=== PATIENT | female | born 1990 | race Caucasian/White ===

== ENCOUNTER 2016-10-17 12:53 | Inpatient (IN) | payer OTHER, BC ==
[2016-10-17] VITALS (7 sets, daily range): BP systolic 100–115; BP diastolic 64–78; PULSE 94–99; TEMP 36.3–36.7; O2SAT 99–100; BMI 15.6
[~2016-10-17] VITALS: Ht 177.8 cm; Wt 47.6 kg
[2016-10-17] MEDS ORDERED: SODIUM CHLORIDE 0.9% 1000ML 1,000 ML IV STA ×3 (14:42→15:51)
[2016-10-17] MEDS ORDERED: ONDANSETRON INJ 2 MG/ML 2 ML VIAL IV STA (14:42)
--- NOTE | 2016-10-17 15:03 | EMERGENCY ROOM VISIT NOTE ---
History Report prepared by Eligio: Anai Garza Under the Supervision of: Dr. Nithya Lea M.D. First contact with patient: 14:18 Chief Complaint: REFERRED BY DOCTOR Stated Complaint: NAUSEA,VOMITING,FLU LIKE SX History of Present Illness The patient is a 26 year old female who presents to the Emergency Room with complaints of persistent flu-like symptoms starting 2 days ago. She complains of subjective fevers, chills, headache, rhinorrhea, shortness of breath, nausea , vomiting, and body aches. Her boyfriend recently had similar symptoms. The patient has a history of type I diabetes and her blood sugar level is normally around 300-400. She does not check her blood sugar level at home. She was evaluated at an urgent care and she was referred to the Emergency Room for concerns about DKA. Her blood sugar level at the urgent care was 250. She last used her insulin this morning. She denies any cough, chest pain, abdominal pain , blood in urine/stool, or any other complaints. Source of History: patient Onset: 2 days ago Position: other (global) Quality: other (flu-like symptoms) Timing: other (persistent) Associated Symptoms: + SOB, + chills, + fevers, + headache, + nausea, + vomiting, No abdominal pain, No chest pain, No cough Review of Systems See HPI for pertinent positives & negatives. A total of 10 systems reviewed and were otherwise negative. Past Medical & Surgical Medical Problems: (1) Diabetes Family History Diabetes mellitus Social History Smoking Status: Never Smoker Alcohol Use: none Drug Use: none Marital Status: in relationship Occupation Status: student Current/Historical Medications Scheduled Insulin Human Regular (Novolin R), 5-10 UNITS SC TID [Norplant], 1 DOSE INTRAD DIRECTED Allergies Coded Allergies: No Known Allergies (Unverified , 10/17/16) Physical Exam Vital Signs Date Time Temp Pulse Resp B/P Pulse Ox O2 Delivery O2 Flow Rate FiO2 10/17/16 16:55 107 16 113/82 100 Room Air 10/17/16 16:03 125 10/17/16 14:47 108 20 120/85 100 Room Air 10/17/16 13:06 36.3 123 18 120/76 98 Room Air Physical Exam Vital signs reviewed. General: Extremely thin and cachectic, acute on chronically ill, smell of ketones on breath. HEENT: No scleral icterus, PERRLA, neck supple. Mucous membranes are dry. Atraumatic. Cardiovascular: Tachycardic rate and regular rhythm, no extra sounds. Pulmonary: Clear to auscultation bilaterally, increased work of breathing. Abdomen: Soft, nontender, nondistended, positive bowel sounds. Musculoskeletal: Atraumatic, no peripheral edema. Neurologic: Patient awake alert and oriented x 3, full strength in all 4 extremities. Cranial nerves 2 through 12 grossly intact. Skin: Warm, dry, no rash Medical Decision & Procedures Laboratory Results 10/17/16 15:00 Red Blood Count 4.93, Mean Corpuscular Volume 95.9, Mean Corpuscular Hemoglobin 32.7, Mean Corpuscular Hemoglobin Concent 34.0, Mean Platelet Volume 9.3, Neutrophils (%) (Auto) 73.9, Lymphocytes (%) (Auto) 13.0, Monocytes (%) (Auto) 12.6, Eosinophils (%) (Auto) 0.0, Basophils (%) (Auto) 0.1, Neutrophils # (Auto ) 10.62, Lymphocytes # (Auto) 1.87, Monocytes # (Auto) 1.82, Eosinophils # (Auto ) 0.00, Basophils # (Auto) 0.02 Test 10/17/16 15:00 10/17/16 16:14 10/17/16 16:55 White Blood Count 14.39 K/uL (4.8-10.8) Red Blood Count 4.93 M/uL (4.2-5.4) Hemoglobin 16.1 g/dL (12.0-16.0) Hematocrit 47.3 % (37-47) Mean Corpuscular Volume 95.9 fL (80-100) Mean Corpuscular Hemoglobin 32.7 pg (25-34) Mean Corpuscular Hemoglobin Concent 34.0 g/dl (32-36) Platelet Count 317 K/uL (130-400) Mean Platelet Volume 9.3 fL (7.4-10.4) Neutrophils (%) (Auto) 73.9 % Lymphocytes (%) (Auto) 13.0 % Monocytes (%) (Auto) 12.6 % Eosinophils (%) (Auto) 0.0 % Basophils (%) (Auto) 0.1 % Neutrophils # (Auto) 10.62 K/uL (1.4-6.5) Lymphocytes # (Auto) 1.87 K/uL (1.2-3.4) Monocytes # (Auto) 1.82 K/uL (0.11-0.59) Eosinophils # (Auto) 0.00 K/uL (0-0.5) Basophils # (Auto) 0.02 K/uL (0-0.2) RDW Standard Deviation 43.2 fL (36.4-46.3) RDW Coefficient of Variation 12.3 % (11.5-14.5) Immature Granulocyte % (Auto) 0.4 % Immature Granulocyte # (Auto) 0.06 K/uL (0.00-0.02) Prothrombin Time 9.3 SECONDS (9.0-12.0) Prothromb Time International Ratio 0.9 (0.9-1.1) Estimated Average Glucose 335 mg/dl Hemoglobin A1c 13.3 % (4.5-5.6) Total Bilirubin 0.6 mg/dl (0.2-1) Direct Bilirubin 0.1 mg/dl (0-0.2) Aspartate Amino Transf (AST/SGOT) 28 U/L (15-37) Alanine Aminotransferase (ALT/SGPT) 38 U/L (12-78) Alkaline Phosphatase 155 U/L (45-117) Total Protein 9.8 gm/dl (6.4-8.2) Albumin 5.3 gm/dl (3.4-5.0) Thyroid Stimulating Hormone (TSH) 0.370 uIu/ml (0.300-4.500) Influenza Type A Antigen Neg for Influ A (NEG) Influenza Type B Antigen Neg for Influ B (NEG) Arterial Blood pH 7.18 (7.35-7.45) Arterial Blood Partial Pressure CO2 20 mmHg (35-46) Arterial Blood Partial Pressure O2 113 mm/Hg (80-95) Arterial Blood HCO3 7 mmol/L (19-24) Arterial Blood Oxygen Saturation 97.8 % (90-95) Arterial Blood Base Excess -19.1 mEq/L (-9-1.8) Arterial Blood Gas Delivery ROOM AIR Nelson Test POS (POS) Urine Color YELLOW Urine Appearance CLEAR (CLEAR) Urine pH 5.0 (4.5-7.5) Urine Specific Berkley 1.025 (1.000-1.030) Urine Protein 2+ (NEG) Urine Glucose (UA) 3+ (NEG) Urine Ketones 4+ (NEG) Urine Occult Blood TRACE (NEG) Urine Nitrite NEG (NEG) Urine Bilirubin NEG (NEG) Urine Urobilinogen NEG (NEG) Urine Leukocyte Esterase NEG (NEG) Urine WBC (Auto) 5-10 /hpf (0-5) Urine RBC (Auto) 0-4 /hpf (0-4) Urine Hyaline Casts (Auto) 1-5 /lpf (0-5) Urine Epithelial Cells (Auto) >30 /lpf (0-5) Urine Bacteria (Auto) 1+ (NEG) Urine Test NEG (NEG) Date/Time Source Procedure Growth Status 10/17/16 00:00 Nasal MRSA DNA Surveillance Screen - Final Specimen Negative for MRSA by DNA Probe Complete Laboratory results per my review. Medications Administered Medications (Trade) Dose Ordered Sig/Fam Route Start Time Stop Time Status Last Admin Dose Admin Sodium Chloride (Nss 1000ml) 1,000 ml @ 999 mls/hr Q1H1M STAT IV 10/17/16 14:42 10/17/16 15:42 DC 10/17/16 14:58 999 MLS/HR Ondansetron HCl 4 mg 4 mg NOW STAT IV 10/17/16 14:42 10/17/16 14:46 DC 10/17/16 14:59 4 MG Sodium Chloride 1,000 ml @ 999 mls/hr Q1H1M STAT IV 10/17/16 15:51 10/17/16 16:51 DC 10/17/16 16:54 999 MLS/HR Insulin Human Regular 1 unit/ Syringe 1 ml @ 1 mls/min TODAY@1645 ONCE IV 10/17/16 16:45 10/17/16 16:46 DC 10/17/16 17:23 1 MLS/MIN Insulin Human Regular/Sodium Chloride (novoLIN-R/Nss 250ml) 252.5 ml @ 0 mls/hr DAILY@1130 IV 10/17/16 16:45 10/18/16 18:00 DC 10/18/16 11:30 1.6 MLS/HR ED Course 1418: Past medical records reviewed. The patient was evaluated in room C01B. A complete history and physical examination was performed. 1442: Zofran Inj 4 mg IV, Sodium Chloride 1000 ml @ 999 mls/hr IV, Sodium Chloride 1000 ml @ 200 mls/hr IV. The patient is refusing a chest-xray. 1551: Sodium Chloride 1000 ml @ 999 mls/hr IV 1553: I reevaluated the patient. She is agreeable to the treatment plan. 1625: Upon reevaluation, the patient is resting comfortably. I discussed laboratory and radiographic results with her. She verbalized agreement of the treatment plan. I spoke with Dr. Hagen of the [facility] Service. The patient will be evaluated for further management and care. 1645: Glucagon 1 mg SQ, Dextrose 50 ml IV, Glucose 1 tabs PO, Insulin Human Regular 250 units/Sodium Chloride 252.5 ml @ 0 mls/hr IV, Insulin Human Regular 1 unit/Syringe 1 ml @ 1 mls/min IV 1900: Insulin Aspart Sliding Scale SC Medical Decision Differential diagnosis includes but is not limited to DKA, influenza, metabolic abnormalities, pneumonia, UTI, , renal failure. This patient was evaluated and appeared to be in no distress, but ill. IV access was obtained and laboratory work was drawn. Patient was placed on the cardiac technician. She was hydrated with normal saline solution and given IV Zofran. Laboratory work reveals a leukocytosis, elevated glucose, CO2 of 8 and an anion gap of 24. The patient's pH on ABG is 7.18. After further discussion with the patient, she does not have a realistic understanding of her illness. 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 She does not have a primary care physician. The patient has been using [id number] insulin and not checking her glucose levels. The patient expressed understanding of the gravity of the situation and has agreed to hospitalization for further management. The hospitalist was consulted and has agreed to evaluate the patient for further management. Consults Time Called: 1620 Consulting Physician: Dr. Hagen of the [facility] Hospitalist Service Returned Call: [address] Hagen of the [facility] Service. Impression Primary Impression: DKA (diabetic ketoacidoses) Critical Care I have personally spent greater than 60 minutes of critical care time in the direct management of this patient. This includes bedside care, interpretation of diagnostic studies, and testing, discussion with consultants, patient, and family members, and other required patient management activities. This 60 minutes is in excess of all separately billable procedures. Scribe Attestation The scribe's documentation has been prepared under my direction and personally reviewed by me in its entirety. I confirm that the note above accurately reflects all work, treatment, procedures, and medical decision making performed by me. Departure Information Dispostion Being Evaluated By Hospitalist Referrals No Doctor, Assigned (PCP) Patient Instructions [facility] Problem Qualifiers Primary Impression: DKA (diabetic ketoacidoses) Diabetes mellitus type: type 1 Diabetes mellitus complication detail: without coma Qualified Codes: E10.10 - Type 1 diabetes mellitus with ketoacidosis without coma
[2016-10-17 15:11] LABS: HEMATOCRIT 47.3 % (37-47); MEAN CELL VOLUME 95.9 fL (80-100); MEAN CORPUSCULAR HEMOGLOBIN 32.7 pg (25-34); MEAN PLATELET VOLUME 9.3 fL (7.4-10.4); PLATELET COUNT 317 K/uL (130-400); RED BLOOD COUNT 4.93 M/uL (4.2-5.4); WHITE BLOOD COUNT 14.39 K/uL (4.8-10.8)
[2016-10-17] MEDS ORDERED: NVLRPUC SC (15:31)
[2016-10-17] MEDS ORDERED: NORPLANT INTRAD (15:31)
[2016-10-17 15:38] LABS: BUN/CREATININE RATIO 14.2 (10-20); CALCIUM 9.1 mg/dl (8.5-10.1); CREATININE 1.1 mg/dl (0.60-1.20); MAGNESIUM 2.1 mg/dl (1.8-2.4); POTASSIUM 4.4 mmol/L (3.5-5.1)
[2016-10-17] MEDS ORDERED: INSULIN IV INFUSION PROTOCOL STA ×2 (16:07→17:16)
[2016-10-17 16:11] LABS: BETA-HYDROXYBUTYRATE 88.2 mg/dL (0.2-2.81)
[2016-10-17] MEDS ORDERED: DKA GOAL RANGE 150-250 mg/dl 1 EA ONE ×2 (16:15→17:30)
[2016-10-17] MEDS ORDERED: MODERATE STRESS LEVEL ONE ×2 (16:15→17:30)
[2016-10-17 16:28] LABS: ALLEN TEST POS (POS); ARTERIAL BLD GAS O2 SATURATION 97.8 % (90-95); ARTERIAL BLOOD GAS BASE EXCESS -19.1 mEq/L (-9-1.8); ARTERIAL BLOOD GAS HCO3 7 mmol/L (19-24); ARTERIAL BLOOD GAS PO2 113 mm/Hg (80-95); O2 ADMINISTRATION ROOM AIR
[2016-10-17 16:30] LABS: ARTERIAL BLOOD GAS pH 7.18 (7.35-7.45)
[2016-10-17] MEDS ORDERED: GLUCOSE 40% GEL 15 GM TUBE PO PRN (16:45)
[2016-10-17] MEDS ORDERED: GLUCAGON FOR INJ 1 MG VIAL SQ PRN (16:45)
[2016-10-17] MEDS ORDERED: DEXTROSE 50% 50 ML SYR IV PRN (16:45)
[2016-10-17] MEDS ORDERED: GLUCOSE 10 TABS/TUBE PO PRN (16:45)
[2016-10-17] MEDS ORDERED: INSULIN HUMAN REGULAR IV BOLUS 1 UNIT in SYRINGE 0 ML IV ONE (16:45)
[2016-10-17 17:04] LABS: BASO % 0.1 %; BASO ABS # 0.02 K/uL (0-0.2); COMPLETE YES; IG% 0.4 %; LYMPH ABS # 1.87 K/uL (1.2-3.4); MONO % 12.6 %; NEUT % 73.9 %
[2016-10-17] MEDS ORDERED: SODIUM CHLORIDE 0.9% 1000ML 1,000 ML IV ONE (17:16)
[2016-10-17] MEDS ORDERED: SODIUM CHLORIDE 0.9% 1000ML 1,000 ML IV SCH (17:16)
[2016-10-17 17:18] LABS: URINE APPEARANCE CLEAR (CLEAR); URINE BILIRUBIN NEG (NEG); URINE COLOR YELLOW; URINE EPITHELIAL CELL AUTO >30 /lpf (0-5); URINE NITRITE NEG (NEG); URINE SPECIFIC GRAVITY 1.025 (1.000-1.030); UROBILINOGEN NEG (NEG); ZZUR CULT IF INDIC CLEAN CATCH YES
[2016-10-17 17:19] LABS: MANUAL MICROSCOPIC REQUIRED? NO; REVIEW REQ? NO
[2016-10-17] MEDS: INSULIN REGULAR 250 UNITS in SODIUM CHLORIDE 0.9% 250ML 250 ML IV SCH (17:25)
[2016-10-17] MEDS ORDERED: MoRPHine SULFATE 2 MG/ML CARP IV PRN (17:30)
[2016-10-17] MEDS ORDERED: LORAZEPAM 0.5 MG TAB PO PRN (17:30)
[2016-10-17] MEDS ORDERED: KCL IVF SCH (17:30)
[2016-10-17] MEDS ORDERED: PENDING D5NS+40mEq KCL IVF SCH (17:30)
[2016-10-17] MEDS ORDERED: PHARMACY GLYCEMIC MGMT CONSULT PRN (17:30)
[2016-10-17] MEDS ORDERED: [UNRECOGNIZED DRUG - OTHER] SCH (17:30)
[2016-10-17 17:51] LABS: INR 0.9 (0.9-1.1); PROTHROMBIN TIME (PATIENT) 9.3 SECONDS (9.0-12.0)
--- NOTE | 2016-10-17 18:00 | HISTORY & PHYSICAL EXAMINATION ---
DATE OF ADMISSION: 10/17/2016 CHIEF COMPLAINT: Abdominal pain and vomiting. ADMITTING DIAGNOSIS: Diabetic ketoacidosis. 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 Reportedly, the patient had a falling out with her angular developer at home in [place], I think, and she decided to self-manage her diabetes. The patient reportedly gets her insulin over the counter, takes roughly around 10 units with 3 meals a day, does not take any at bedtime insulin because of concern for hypoglycemia in the evening. She does not check her blood sugars unless she feels poorly. She states that her blood sugars typically run in the 300-400 range and she usually feels shaky, when it is below 200. The patient says she just does not have time to take care of her diabetes at this point in time but when she finishes her education she may have time. The patient initially presented because of feeling flu-like for the last 4 days having vomiting for the last 2 days and decreased oral intake. In the Emergency Department, she was found to have a pH of 7.18 and she was found to have a serum bicarbonate of 8 and anion gap of 24 with a glucose of 300 and a beta hydroxybutyric acid of 88. She is agreeable to admission. PAST MEDICAL HISTORY: Other than her insulin requiring diabetes is only for migraines. MEDICATIONS: Really her insulin as mentioned and she has got a control implant in her arm. SOCIAL HISTORY: She does not smoke or drink. She is art history major. FAMILY HISTORY: Her father is an insulin-requiring diabetic. REVIEW OF SYSTEMS: Only for increasing anxiety of late, decreased energy, increased urination, increased thirst, dry mouth, increased hunger, the nausea and vomiting as mentioned, she says she has stool every day and it is normal size and shape in caliber. She says her urination does not burn or no hematuria. Otherwise, 10 systems were reviewed and are negative. PHYSICAL EXAMINATION: GENERAL: The patient is markedly thin with a BMI of 15. VITAL SIGNS: Her temperature is 36.3, pulse is 120, respirations 20, BP 120/85, O2 sat 100%. HEENT: PERRL, EOMI. Oropharynx is markedly dry. Her lips are cracked. NECK: Without lymphadenopathy, JVD, thyromegaly. HEART: Tachycardic without murmurs. LUNGS: Clear without wheezes or crackles. SPINE: Nontender. ABDOMEN: Normoactive bowel sounds, soft. There is no organomegaly. EXTREMITIES: Without cyanosis, clubbing or edema. She has no neuropathy at this present time. NEUROLOGICALLY: She is awake, alert and appropriate. Cranial nerves II-XII are intact. LABORATORY DATA: Otherwise shows a BUN and creatinine of 24 and 1.6, potassium 4.4. White count of 14, H\T\H of 16 and 47, platelet count is 317. ASSESSMENT: Diabetic ketoacidosis in a 26-year-old insulin-requiring female. PLAN: The patient may admit to ICU, she will be put on DKA protocol with intravenous fluids and even dextrose-containing fluids until anion gap closes. Will have a pharmacy management for this DKA. Supplement her potassium as is her acidosis changes is expected to reverse and teaching will be undertaken. Enoxaparin will be employed for DVT prevention and lorazepam will be used for anxiety. Urine thus is also ordered as well as a TSH and hemoglobin A1c; this would be performed after the patient is admitted. JUSTIND
[2016-10-17] MEDS ORDERED: INSULIN ASPART 100 UNITS/ML 3 ML PEN SC SCH (18:03)
--- NOTE | 2016-10-17 18:25 | Pharmacy Progress Note ---
Glycemic Control Intl Consult Date of Service Oct 17, 2016. Scope Glycemic Pharmacist consulted for glycemic control and to write orders per [facility] inpatient glycemic control protocol Objective Weight (Kilograms): 47.400 Accuchecks BSG (last 24hrs): Test 10/17/16 14:57 10/17/16 15:00 Bedside Glucose 364 mg/dl (70-90) Random Glucose 368 mg/dl (70-99) Laboratory Data (last 24hrs) Test 10/17/16 15:00 Anion Gap 24.0 mmol/L BUN/Creatinine Ratio 14.2 Blood Urea Nitrogen 16 mg/dl Creatinine 1.10 mg/dl Potassium Level 4.4 mmol/L Sodium Level 134 mmol/L White Blood Count 14.39 K/uL Red Blood Count 4.93 M/uL Hemoglobin 16.1 g/dL Hematocrit 47.3 % Mean Corpuscular Volume 95.9 fL Mean Corpuscular Hemoglobin 32.7 pg Mean Corpuscular Hemoglobin Concent 34.0 g/dl Platelet Count 317 K/uL Mean Platelet Volume 9.3 fL Neutrophils (%) (Auto) 73.9 % Lymphocytes (%) (Auto) 13.0 % Monocytes (%) (Auto) 12.6 % Eosinophils (%) (Auto) 0.0 % Basophils (%) (Auto) 0.1 % Neutrophils # (Auto) 10.62 K/uL Lymphocytes # (Auto) 1.87 K/uL Monocytes # (Auto) 1.82 K/uL Eosinophils # (Auto) 0.00 K/uL Basophils # (Auto) 0.02 K/uL HbA1c Test 10/17/16 15:00 Recent Pertinent Medications Outpatient Anti-diabetic Regimen: * Regular insulin 5-10 units SC TID * No basal insulin * A1c pending Risk Factors for Insulin Resistance: * Infection: Flu-like symptoms * Diet: T1DM Assessment & Plan ASSESSMENT: * ADA & AACE recommend a goal blood sugar range 140-180 mg/dl for the majority of critically ill & non-critically ill patients. However, more stringent targets may be selected in individual cases. * 26 yo F with history of Type 1 diabetes * Patient obtains regular insulin over the counter. She does not use basal insulin at home * Patient does not regularly check BSG's at home. BSG's typically 300-400 mg/ dL. Patient noted she doesn't feel well if BSG's below ~200 mg/dL * Father has diabetes * Patient referred to ED, found to have severe DKA with significant acidosis and elevated anion gap. Started on insulin gtt, plan to transfer to ICU * Patient's BSG's close to goal range already, prior to starting insulin gtt. However, DKA requires insulin to correct acidosis. BSG's within range after 1 hr on insulin gtt. Will add dextrose to IVF * Anticipate insulin gtt will be required for a minimum of 6-12 hours. Continue serial lab testing q4h. * Will transition to SQ basal/bolus when following criteria are met and provider OK's transition: * Glucose < 200 mg/dL PLUS 2 of the following 3 listed criteria * Anion gap 12 mEq/L or below * CO2 15 mEq/L or above * pH greater than 7.3 PLAN FOR INPATIENT GLYCEMIC CONTROL: * Continue IV insulin infusion (moderate stress, goal 150-250 mg/dL) * Add dextrose and K to IVF now, as ordered * Continue serial lab testing q4h [email or web address], as recommended by insulin infusion protocol * Patient will require diabetes education and significant modification of outpatient regimen, most notably the addition of basal insulin, possible transition to rapid-acting insulin (in-lieu of regular insulin) and frequent monitoring of BSG's. * Please note that the plan above was derived based on current level of insulin resistance and hospital stress. These recommendations are appropriate for inpatient admission only. Plan of care upon discharge will need to be reassessed to avoid potential outpatient hypo/hyperglycemia. Thank you.
[2016-10-17] MEDS: POTASSIUM CHLORIDE INJ 40 MEQ in D5W AND NSS 1,000 ML IV SCH (19:13)
[2016-10-17] MEDS: INSULIN ASPART 100 UNITS/ML 3 ML PEN SC SCH ×2 (19:13→21:00)
[2016-10-17] MEDS: ENOXAPARIN 40 MG/0.4 ML SYR SQ SCH (19:14)
[2016-10-17] MEDS: ACETAMINOPHEN 325 MG TAB PO PRN (19:15)
[2016-10-17 20:31] LABS: BUN/CREATININE RATIO 10.7 (10-20); CALCIUM 7.8 mg/dl (8.5-10.1); CREATININE 0.98 mg/dl (0.60-1.20); MAGNESIUM 1.6 mg/dl (1.8-2.4)
[2016-10-17 20:46] LABS: PHOSPHORUS 1.1 mg/dl (2.5-4.9)
[2016-10-17] MEDS ORDERED: NURSING VERBAL MED ORDER STA (20:58)
[2016-10-17] MEDS ORDERED: SODIUM CHLORIDE 0.9% IV ONE (21:30)
[2016-10-17] MEDS ORDERED: POTASSIUM PHOSPHATE INJ 21 MMOL in SODIUM CHLORIDE 0.9% 500ML 500 ML IV ONE (21:30)
[2016-10-17] MEDS ORDERED: POTASSIUM PHOSPHATE IV ONE (21:30)
[2016-10-17] MEDS: MAGNESIUM SULFATE 1GM / D5W 1 GM in PREMIXED IN D5W 100 ML IV SCH ×2 (21:55→23:02)
[2016-10-17 23:59] LABS: BUN/CREATININE RATIO 11.5 (10-20); CALCIUM 7.4 mg/dl (8.5-10.1); CREATININE 0.9 mg/dl (0.60-1.20); MAGNESIUM 2.3 mg/dl (1.8-2.4); PHOSPHORUS 1.6 mg/dl (2.5-4.9); POTASSIUM 4.1 mmol/L (3.5-5.1)
[2016-10-18] VITALS (17 sets, daily range): BP systolic 94–125; BP diastolic 57–89; PULSE 68–98; TEMP 36.5–37; O2SAT 98–100; Ht 177.8 cm; Wt 47.6 kg
[2016-10-18] MEDS: ACETAMINOPHEN 325 MG TAB PO PRN ×2 (00:04→14:55)
[2016-10-18 00:09] LABS: BETA-HYDROXYBUTYRATE 34.21 mg/dL (0.2-2.81)
[2016-10-18] MEDS: POTASSIUM CHLORIDE INJ 40 MEQ in D5W AND NSS 1,000 ML IV SCH ×3 (01:27→14:53)
[2016-10-18 05:15] LABS: BUN/CREATININE RATIO 12.1 (10-20); CALCIUM 7.6 mg/dl (8.5-10.1); CREATININE 0.72 mg/dl (0.60-1.20); MAGNESIUM 2.2 mg/dl (1.8-2.4); POTASSIUM 3.6 mmol/L (3.5-5.1)
[2016-10-18 05:28] LABS: PHOSPHORUS 1.3 mg/dl (2.5-4.9)
[2016-10-18] MEDS ORDERED: NURSING VERBAL MED ORDER STA (05:32)
[2016-10-18] MEDS ORDERED: POTASSIUM PHOSPHATE INJ 15 MMOL in SODIUM CHLORIDE 0.9% 250ML 250 ML IV SCH (05:45)
[2016-10-18 06:02] LABS: ESTIMATED AVERAGE GLUCOSE 335 mg/dl; HA1C FLAG Normal (Normal)
[2016-10-18] MEDS: INSULIN ASPART 100 UNITS/ML 3 ML PEN SC SCH ×4 (08:00→20:50)
[2016-10-18 09:08] LABS: BUN/CREATININE RATIO 12.5 (10-20); CALCIUM 7.5 mg/dl (8.5-10.1); CREATININE 0.6 mg/dl (0.60-1.20); MAGNESIUM 1.8 mg/dl (1.8-2.4); POTASSIUM 3.6 mmol/L (3.5-5.1)
[2016-10-18] MEDS: INSULIN REGULAR 250 UNITS in SODIUM CHLORIDE 0.9% 250ML 250 ML IV SCH (11:30)
--- NOTE | 2016-10-18 12:00 | Critical Care Consultation ---
Critical Care Consultation Date of Consultation: Oct 18, 2016. Attending Physician: Rabia Hughes M.D. Reason for Consultation: DKA History of Present Illness 26-year-old female with past medical history of type 1 diabetes presented to the ER with complaints of flulike symptoms which started about 4 days prior to arrival. She had also experienced nausea and vomiting with decreased by mouth intake for about 2 days. In the ER , she was found to have a blood glucose of 300, with a pH of 7.18, bicarbonate of 8 and anion gap of 24. The urine was positive for 4+ ketones and serum beta hydroxybutyric acid was 88. She has a history of type 1 diabetes diagnosed about 2 years ago . 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 She states that she doesn't like to check her blood sugars while at school for privacy issues and that she is very busy with school work. Her blood sugars usually run in the 300s. She was admitted to the ICU to manage her DKA. Today she complains of feeling tired but denies any new episodes of vomiting though she feels nauseous. Past Medical/Surgical History Type 1 diabetes Family History Diabetes mellitus Social History Smoking Status: Never Smoker Drug Use: none Allergies Coded Allergies: No Known Allergies (Unverified , 10/17/16) Home Medications Scheduled Insulin Human Regular (Novolin R), 5-10 UNITS SC TID [Norplant], 1 DOSE INTRAD DIRECTED Current Inpatient Medications Current Inpatient Medications Medications (Trade) Dose Ordered Sig/Fam Route Start Time Stop Time Status Last Admin Dose Admin Insulin Aspart SLIDING SCALE PCHS SC 10/17/16 18:03 11/16/16 18:59 Insulin Human Regular/Sodium Chloride (novoLIN-R/Nss 250ml) 252.5 ml @ 0 mls/hr DAILY@1130 IV 10/17/16 16:45 10/31/16 16:44 10/17/16 17:25 1.2 MLS/HR Glucose (Glucose 40% Gel) UD PRN PO 10/17/16 16:45 11/16/16 16:44 Glucose (Glucose Chew Tab) 1 tabs UD PRN PO 10/17/16 16:45 11/16/16 16:44 Dextrose (Dextrose 50% 50ML Syringe) 50 ml UD PRN IV 10/17/16 16:45 11/16/16 16:44 Glucagon (Glucagon Inj) 1 mg UD PRN SQ 10/17/16 16:45 11/16/16 16:44 Enoxaparin Sodium (Lovenox Inj) 40 mg Q24H SQ 10/17/16 20:00 11/16/16 19:59 10/17/16 19:14 40 MG Acetaminophen (Tylenol Tab) 650 mg Q4H PRN PO 10/17/16 17:30 11/16/16 17:29 10/18/16 00:04 650 MG Lorazepam (Ativan Tab) 0.5 mg Q4H PRN PO 10/17/16 17:30 11/16/16 17:29 Morphine Sulfate (MoRPHine SULFATE INJ) 2 mg Q2H PRN IV 10/17/16 17:30 10/31/16 17:29 Miscellaneous Information 1 ea 1 ea UD PRN N/A 10/17/16 17:30 11/16/16 17:29 Potassium Chloride/Dextrose/ Sodium Chloride (KCl Inj/D5W And Nss) 1,020 ml @ 150 mls/hr Q6H48M IV 10/17/16 18:45 11/16/16 18:44 10/18/16 08:21 150 MLS/HR Review of Systems Constitutional: No chills, No fever Eyes: No worsening of vision ENT: No hearing loss Respiratory: No cough, No sputum Cardiovascular: No chest pain Abdomen: + nausea, No pain, No vomiting Musculoskeletal: No joint pain Genitourinary - Female: No dysuria, No urinary frequency Neurologic: No memory loss, No paralysis Physical Exam Date Time Temp Pulse Resp B/P Pulse Ox O2 Delivery O2 Flow Rate FiO2 10/18/16 10:00 91 20 115/75 99 Room Air 10/18/16 08:00 37.0 98 24 104/68 100 Room Air 10/18/16 08:00 99 Room Air 10/18/16 06:00 81 18 98/72 99 10/18/16 06:00 81 18 98/72 100 Room Air 10/18/16 05:00 84 15 94/61 100 10/18/16 04:00 36.5 85 14 107/62 99 10/18/16 04:00 36.5 85 14 107/62 99 Room Air 10/18/16 04:00 98 Room Air 10/18/16 03:00 93 12 96/57 99 10/18/16 02:00 89 19 110/68 98 10/18/16 02:00 89 19 110/68 98 Room Air 10/18/16 01:00 89 19 107/63 98 10/18/16 00:01 36.7 10/18/16 00:01 90 19 99/60 100 10/17/16 23:59 99 Room Air 10/17/16 23:00 97 14 102/66 99 10/17/16 22:00 96 15 115/68 100 10/17/16 21:00 97 16 100/65 99 10/17/16 20:00 100 Room Air 10/17/16 20:00 97 15 102/64 100 10/17/16 20:00 36.7 10/17/16 19:00 99 15 105/78 100 10/17/16 18:45 36.3 94 18 108/75 100 Room Air 10/17/16 18:00 92 18 121/79 100 10/17/16 16:55 107 16 113/82 100 Room Air 10/17/16 16:03 125 10/17/16 14:47 108 20 120/85 100 Room Air 10/17/16 13:06 36.3 123 18 120/76 98 Room Air General Appearance: well-appearing, WD/WN, no apparent distress Eyes: PERRLA Respiratory: breath sounds normal Cardiovasular: normal S1S2, other (tachycardia) Abdomen: non tender, normal bowel sounds, no masses Lower Extremities: no edema Neuro: alert, oriented x 3 Laboratory Results Last 24 Hours Test 10/17/16 14:57 10/17/16 15:00 10/17/16 16:14 10/17/16 16:29 Bedside Glucose 364 mg/dl 291 mg/dl White Blood Count 14.39 K/uL Red Blood Count 4.93 M/uL Hemoglobin 16.1 g/dL Hematocrit 47.3 % Mean Corpuscular Volume 95.9 fL Mean Corpuscular Hemoglobin 32.7 pg Mean Corpuscular Hemoglobin Concent 34.0 g/dl Platelet Count 317 K/uL Mean Platelet Volume 9.3 fL Neutrophils (%) (Auto) 73.9 % Lymphocytes (%) (Auto) 13.0 % Monocytes (%) (Auto) 12.6 % Eosinophils (%) (Auto) 0.0 % Basophils (%) (Auto) 0.1 % Neutrophils # (Auto) 10.62 K/uL Lymphocytes # (Auto) 1.87 K/uL Monocytes # (Auto) 1.82 K/uL Eosinophils # (Auto) 0.00 K/uL Basophils # (Auto) 0.02 K/uL RDW Standard Deviation 43.2 fL RDW Coefficient of Variation 12.3 % Immature Granulocyte % (Auto) 0.4 % Immature Granulocyte # (Auto) 0.06 K/uL Prothrombin Time 9.3 SECONDS Prothromb Time International Ratio 0.9 Sodium Level 134 mmol/L Potassium Level 4.4 mmol/L Chloride Level 102 mmol/L Carbon Dioxide Level 8 mmol/L Anion Gap 24.0 mmol/L Blood Urea Nitrogen 16 mg/dl Creatinine 1.10 mg/dl Est Creatinine Clear Calc Drug Dose 58.5 ml/min Estimated GFR () 80.8 Estimated GFR (Non- 69.7 BUN/Creatinine Ratio 14.2 Random Glucose 368 mg/dl Estimated Average Glucose 335 mg/dl Hemoglobin A1c 13.3 % Calcium Level 9.1 mg/dl Magnesium Level 2.1 mg/dl Total Bilirubin 0.6 mg/dl Direct Bilirubin 0.1 mg/dl Aspartate Amino Transf (AST/SGOT) 28 U/L Alanine Aminotransferase (ALT/SGPT) 38 U/L Alkaline Phosphatase 155 U/L Total Protein 9.8 gm/dl Albumin 5.3 gm/dl Beta-Hydroxybutyric Acid 88.20 mg/dL Thyroid Stimulating Hormone (TSH) 0.370 uIu/ml Influenza Type A Antigen Neg for Influ A Influenza Type B Antigen Neg for Influ B Arterial Blood pH 7.18 Arterial Blood Partial Pressure CO2 20 mmHg Arterial Blood Partial Pressure O2 113 mm/Hg Arterial Blood HCO3 7 mmol/L Arterial Blood Oxygen Saturation 97.8 % Arterial Blood Base Excess -19.1 mEq/L Arterial Blood Gas Delivery ROOM AIR Nelson Test POS Test 10/17/16 16:55 10/17/16 18:28 10/17/16 20:04 10/17/16 20:05 Urine Color YELLOW Urine Appearance CLEAR Urine pH 5.0 Urine Specific [place] 1.025 Urine Protein 2+ Urine Glucose (UA) 3+ Urine Ketones 4+ Urine Occult Blood TRACE Urine Nitrite NEG Urine Bilirubin NEG Urine Urobilinogen NEG Urine Leukocyte Esterase NEG Urine WBC (Auto) 5-10 /hpf Urine RBC (Auto) 0-4 /hpf Urine Hyaline Casts (Auto) 1-5 /lpf Urine Epithelial Cells (Auto) >30 /lpf Urine Bacteria (Auto) 1+ Urine Test NEG Bedside Glucose 170 mg/dl 272 mg/dl Venous Blood pH 7.26 Sodium Level 138 mmol/L Potassium Level 4.0 mmol/L Chloride Level 109 mmol/L Carbon Dioxide Level 14 mmol/L Anion Gap 15.0 mmol/L Blood Urea Nitrogen 11 mg/dl Creatinine 0.98 mg/dl Est Creatinine Clear Calc Drug Dose 65.7 ml/min Estimated GFR () 92.9 Estimated GFR (Non- 80.2 BUN/Creatinine Ratio 10.7 Random Glucose 291 mg/dl Calcium Level 7.8 mg/dl Phosphorus Level 1.1 mg/dl Magnesium Level 1.6 mg/dl Test 10/17/16 21:02 10/17/16 22:00 10/17/16 23:03 10/17/16 23:30 Bedside Glucose 272 mg/dl 239 mg/dl 272 mg/dl Venous Blood pH 7.27 Sodium Level 141 mmol/L Potassium Level 4.1 mmol/L Chloride Level 112 mmol/L Carbon Dioxide Level 16 mmol/L Anion Gap 13.0 mmol/L Blood Urea Nitrogen 10 mg/dl Creatinine 0.90 mg/dl Est Creatinine Clear Calc Drug Dose 71.5 ml/min Estimated GFR () 103.0 Estimated GFR (Non- 88.9 BUN/Creatinine Ratio 11.5 Random Glucose 301 mg/dl Calcium Level 7.4 mg/dl Phosphorus Level 1.6 mg/dl Magnesium Level 2.3 mg/dl Beta-Hydroxybutyric Acid 34.21 mg/dL Test 10/17/16 23:59 10/18/16 01:06 10/18/16 01:59 10/18/16 03:00 Bedside Glucose 257 mg/dl 261 mg/dl 243 mg/dl 219 mg/dl Test 10/18/16 03:50 10/18/16 04:45 10/18/16 06:02 10/18/16 08:27 Bedside Glucose 219 mg/dl 199 mg/dl 170 mg/dl Venous Blood pH 7.30 Sodium Level 143 mmol/L Potassium Level 3.6 mmol/L Chloride Level 116 mmol/L Carbon Dioxide Level 16 mmol/L Anion Gap 11.0 mmol/L Blood Urea Nitrogen 9 mg/dl Creatinine 0.72 mg/dl Est Creatinine Clear Calc Drug Dose 89.4 ml/min Estimated GFR () 134.9 Estimated GFR (Non- 116.4 BUN/Creatinine Ratio 12.1 Random Glucose 242 mg/dl Calcium Level 7.6 mg/dl Phosphorus Level 1.3 mg/dl Magnesium Level 2.2 mg/dl Test 10/18/16 08:34 10/18/16 09:57 10/18/16 11:06 Venous Blood pH 7.32 Sodium Level 143 mmol/L Potassium Level 3.6 mmol/L Chloride Level 116 mmol/L Carbon Dioxide Level 17 mmol/L Anion Gap 10.0 mmol/L Blood Urea Nitrogen 8 mg/dl Creatinine 0.60 mg/dl Est Creatinine Clear Calc Drug Dose 121.5 ml/min Estimated GFR () 146.8 Estimated GFR (Non- 126.7 BUN/Creatinine Ratio 12.5 Random Glucose 203 mg/dl Calcium Level 7.5 mg/dl Phosphorus Level 2.0 mg/dl Magnesium Level 1.8 mg/dl Bedside Glucose 243 mg/dl 278 mg/dl Assessment & Plan 26-year-old female with past medical history of type 1 diabetes presented to the ER with complaints of flulike symptoms which started about 4 days prior to arrival. She had also experienced nausea and vomiting with decreased by mouth intake for about 2 days. In the ER , she was found to have a blood glucose of 300, with a pH of 7.18, bicarbonate of 8 and anion gap of 24. The urine was positive for 4+ ketones and serum beta hydroxybutyric acid was 88. The patient had been noncompliant with her medication as she was managing Neuro: - Awake alert and oriented Endocrine: -DKA: On arrival, pH 7.18 , anion gap 24, blood glucose of 368 - IV insulin per protocol - BSG every hour - IV fluids- D5W with KCl at 150 mls/ hour Hgb A1c 13.3 , Avg blood sugar at 325 - She will need outpatient follow-up for an insulin regimen upon discharge - patient transition specialist consult Renal: IVF: continue NSS electrolytes: Phosphorus this morning at 1.3, 15 mmol K-Phos added Calcium at 7.6 - Monitor electrolytes GI/FEN - Restarted diet this morning DVT prophylaxis: Lovenox Full code Disposition : Monitor in ICU ,monitoring blood sugars transfer to telemetry later today. Resident Physician Supervision Note: I was present with Dr. Jhoana Echevarria during the history and exam. I discussed the case with the resident and agree with the findings and plan as documented in the note. DKA secondary to non-compliance with physician follow up and management. Coming off insulin drip, start Lantus Continue electrolytes monitoring and replenishment. Transfer to floor this evening if no issues Counseled the patient about the importance of proper diabetic management, she verbalizes understanding Documented By: Armando Graff MD
[2016-10-18 13:04] LABS: BUN/CREATININE RATIO 9.3 (10-20); CALCIUM 7.8 mg/dl (8.5-10.1); CREATININE 0.59 mg/dl (0.60-1.20); MAGNESIUM 1.8 mg/dl (1.8-2.4); POTASSIUM 3.6 mmol/L (3.5-5.1)
[2016-10-18 13:15] LABS: PHOSPHORUS 1.2 mg/dl (2.5-4.9)
[2016-10-18] MEDS ORDERED: POTASSIUM PHOS 3 MMOL/1 ML INFUSION IV STA (13:52)
[2016-10-18] MEDS ORDERED: POTASSIUM PHOSPHATE INJ 21 MMOL in SODIUM CHLORIDE 0.9% 500ML 500 ML IV SCH (14:15)
--- NOTE | 2016-10-18 14:34 | Pharmacy Progress Note ---
Glycemic Control: Progress Nt Date of Service Oct 18, 2016. Scope Glycemic Pharmacist consulted by Dr Hagen on 10/17/16 for glycemic control and to write orders per [facility] inpatient glycemic control protocol. Objective Accuchecks BSG (last 24hrs): Test 10/17/16 14:57 10/17/16 15:00 10/17/16 16:29 10/17/16 18:28 Bedside Glucose 364 mg/dl (70-90) 291 mg/dl (70-90) 170 mg/dl (70-90) Random Glucose 368 mg/dl (70-99) Test 10/17/16 20:04 10/17/16 20:05 10/17/16 21:02 10/17/16 22:00 Bedside Glucose 272 mg/dl (70-90) 272 mg/dl (70-90) 239 mg/dl (70-90) Random Glucose 291 mg/dl (70-99) Test 10/17/16 23:03 10/17/16 23:30 10/17/16 23:59 10/18/16 01:06 Bedside Glucose 272 mg/dl (70-90) 257 mg/dl (70-90) 261 mg/dl (70-90) Random Glucose 301 mg/dl (70-99) Test 10/18/16 01:59 10/18/16 03:00 10/18/16 03:50 10/18/16 04:45 Bedside Glucose 243 mg/dl (70-90) 219 mg/dl (70-90) 219 mg/dl (70-90) Random Glucose 242 mg/dl (70-99) Test 10/18/16 06:02 10/18/16 08:27 10/18/16 08:34 10/18/16 09:57 Bedside Glucose 199 mg/dl (70-90) 170 mg/dl (70-90) 243 mg/dl (70-90) Random Glucose 203 mg/dl (70-99) Test 10/18/16 11:06 10/18/16 12:03 10/18/16 12:15 10/18/16 13:10 Bedside Glucose 278 mg/dl (70-90) 220 mg/dl (70-90) 198 mg/dl (70-90) Random Glucose 246 mg/dl (70-99) Laboratory Data (last 24hrs) Test 10/17/16 15:00 10/17/16 20:05 10/17/16 23:30 10/18/16 04:45 Anion Gap 24.0 mmol/L 15.0 mmol/L 13.0 mmol/L 11.0 mmol/L BUN/Creatinine Ratio 14.2 10.7 11.5 12.1 Blood Urea Nitrogen 16 mg/dl 11 mg/dl 10 mg/dl 9 mg/dl Creatinine 1.10 mg/dl 0.98 mg/dl 0.90 mg/dl 0.72 mg/dl Hemoglobin A1c 13.3 % Potassium Level 4.4 mmol/L 4.0 mmol/L 4.1 mmol/L 3.6 mmol/L Sodium Level 134 mmol/L 138 mmol/L 141 mmol/L 143 mmol/L White Blood Count 14.39 K/uL Red Blood Count 4.93 M/uL Hemoglobin 16.1 g/dL Hematocrit 47.3 % Mean Corpuscular Volume 95.9 fL Mean Corpuscular Hemoglobin 32.7 pg Mean Corpuscular Hemoglobin Concent 34.0 g/dl Platelet Count 317 K/uL Mean Platelet Volume 9.3 fL Neutrophils (%) (Auto) 73.9 % Lymphocytes (%) (Auto) 13.0 % Monocytes (%) (Auto) 12.6 % Eosinophils (%) (Auto) 0.0 % Basophils (%) (Auto) 0.1 % Neutrophils # (Auto) 10.62 K/uL Lymphocytes # (Auto) 1.87 K/uL Monocytes # (Auto) 1.82 K/uL Eosinophils # (Auto) 0.00 K/uL Basophils # (Auto) 0.02 K/uL Test 10/18/16 08:34 10/18/16 12:15 Anion Gap 10.0 mmol/L 9.0 mmol/L BUN/Creatinine Ratio 12.5 9.3 Blood Urea Nitrogen 8 mg/dl 6 mg/dl Creatinine 0.60 mg/dl 0.59 mg/dl Potassium Level 3.6 mmol/L 3.6 mmol/L Sodium Level 143 mmol/L 141 mmol/L Recent Pertinent Medications Outpatient Anti-diabetic Regimen: * Regular insulin 5-10 units TID The patient is currently receiving: * IV insulin infusion * moderate protocol * Goal range 140-180mg/dL * NovoLog HS to cover CHO Risk Factors for Insulin Resistance: * IVF: D5NS + KCl @ 150mL/hr * Diet: T1DM - still not feeling well enough to eat breakfast or dinner * Elevated A1c Assessment & Plan ASSESSMENT: * ADA & AACE recommend a goal blood sugar range 140-180 mg/dl for the majority of critically ill & non-critically ill patients. However, more stringent targets may be selected in individual cases. 10/18/16 * BSGs improved with IV insulin infusion * Gap closed, VBG WNL, SCr normalized --> ready to transition to SQ basal/ bolus regimen per Dr Echevarria * Home regimen not reliable for SQ dosing * will utilize weight based dosing to formulate regimen * IV fluids of D5NS+KCl @ 150mL/hr * may benefit from decreasing rate to help better control BSGs * A1c current PLAN FOR INPATIENT GLYCEMIC CONTROL: * Transition from IV insulin infusion * continue infusion to overlap SQ basal dose * Begin Lantus 10 units SQ x1 dose with dinner tonight * based on a stress of 1 and also patient drip rate * re-dose in AM based on response * Continue NovoLog SQ --> change to AC/HS/ * Correction factor: 40mg/dL/unit * Carb ratio: 1 unit per 12g of CHO consumed * Goal range: 140-180mg/dL for ICU patient (may also feel hypoglycemic with BSGs in normal goal range) * A1c * current * added to discharge instructions RECOMMENDATIONS FOR DISCHARGE: * Benefit of endocrine followup * likely, will need basal and bolus insulins at discharge * doses TBD * Please note that the plan above was derived based on current level of insulin resistance and hospital stress. These recommendations are appropriate for inpatient admission only. Plan of care upon discharge will need to be reassessed to avoid potential outpatient hypo/hyperglycemia. Thank you.
[2016-10-18] MEDS ORDERED: INSULIN GLARGINE SOLOSTAR 100 UNITS/ML 3 ML PEN SC SCH (16:30)
[2016-10-18 16:43] LABS: BUN/CREATININE RATIO 7.5 (10-20); CALCIUM 7.6 mg/dl (8.5-10.1); CREATININE 0.64 mg/dl (0.60-1.20); MAGNESIUM 1.7 mg/dl (1.8-2.4); PHOSPHORUS 1.6 mg/dl (2.5-4.9); POTASSIUM 3.7 mmol/L (3.5-5.1)
[2016-10-18] MEDS ORDERED: IBUPROFEN 200 MG TAB PO STA (18:11)
--- NOTE | 2016-10-18 19:11 | Family Medicine Progress Note ---
Progress Note Date of Service Oct 18, 2016. Subjective Pt evaluation today including: conversation w/ patient, physical exam, lab review Pain: Denies Patient was seen at the bedside. She states that she is feeling better than yesterday. Complains of weakness. Denies any abdominal pain, nausea, vomiting, dizziness or any other additional complaints. Last time she saw her endocrinology was 2014. She didn't go back because she didn't like the doctor. She states that she buys novolog insulin over the counter and take 3X/day. She doesn't check her glucose level unless she feels unwell. Constitutional: + weakness, No fever Respiratory: No cough, No dyspnea at rest, No dyspnea on exertion, No shortness of breath, No sputum Abdomen: No constipation, No diarrhea, No nausea, No pain, No vomiting Musculoskeletal: No muscle pain Female : No dysuria Skin: No rash Medications Current Inpatient Medications Medications (Trade) Dose Ordered Sig/Fam Route Start Time Stop Time Status Last Admin Dose Admin Glucose (Glucose 40% Gel) UD PRN PO 10/17/16 16:45 11/16/16 16:44 Glucose (Glucose Chew Tab) 1 tabs UD PRN PO 10/17/16 16:45 11/16/16 16:44 Dextrose (Dextrose 50% 50ML Syringe) 50 ml UD PRN IV 10/17/16 16:45 11/16/16 16:44 Glucagon (Glucagon Inj) 1 mg UD PRN SQ 10/17/16 16:45 11/16/16 16:44 Enoxaparin Sodium (Lovenox Inj) 40 mg Q24H SQ 10/17/16 20:00 11/16/16 19:59 10/17/16 19:14 40 MG Acetaminophen (Tylenol Tab) 650 mg Q4H PRN PO 10/17/16 17:30 11/16/16 17:29 10/18/16 14:55 650 MG Lorazepam (Ativan Tab) 0.5 mg Q4H PRN PO 10/17/16 17:30 11/16/16 17:29 Morphine Sulfate (MoRPHine SULFATE INJ) 2 mg Q2H PRN IV 10/17/16 17:30 10/31/16 17:29 Miscellaneous Information 1 ea 1 ea UD PRN N/A 10/17/16 17:30 11/16/16 17:29 Potassium Chloride/Dextrose/ Sodium Chloride (KCl Inj/D5W And Nss) 1,020 ml @ 150 mls/hr Q6H48M IV 10/17/16 18:45 11/16/16 18:44 10/18/16 14:53 150 MLS/HR Insulin Aspart (novoLOG ASPART) SLIDING SCALE ACHS MS 10/18/16 16:00 11/17/16 15:59 10/18/16 16:59 2 UNITS Insulin Aspart (novoLOG ASPART) SLIDING SCALE 0000,0400 MS 10/19/16 00:00 11/18/16 00:00 Objective Vital Signs Date Time Temp Pulse Resp B/P Pulse Ox O2 Delivery O2 Flow Rate FiO2 10/18/16 18:00 78 20 113/79 99 Room Air 10/18/16 16:00 81 20 125/85 100 Room Air 10/18/16 16:00 100 10/18/16 14:00 88 22 116/75 99 Room Air 10/18/16 12:00 98 22 125/83 98 Room Air 10/18/16 12:00 99 10/18/16 10:00 91 20 115/75 99 Room Air 10/18/16 08:00 37.0 98 24 104/68 100 Room Air 10/18/16 08:00 99 Room Air 10/18/16 06:00 81 18 98/72 99 10/18/16 06:00 81 18 98/72 100 Room Air 10/18/16 05:00 84 15 94/61 100 10/18/16 04:00 36.5 85 14 107/62 99 10/18/16 04:00 36.5 85 14 107/62 99 Room Air 10/18/16 04:00 98 Room Air 10/18/16 03:00 93 12 96/57 99 10/18/16 02:00 89 19 110/68 98 10/18/16 02:00 89 19 110/68 98 Room Air 10/18/16 01:00 89 19 107/63 98 10/18/16 00:01 36.7 10/18/16 00:01 90 19 99/60 100 10/17/16 23:59 99 Room Air 10/17/16 23:00 97 14 102/66 99 10/17/16 22:00 96 15 115/68 100 10/17/16 21:00 97 16 100/65 99 10/17/16 20:00 100 Room Air 10/17/16 20:00 97 15 102/64 100 10/17/16 20:00 36.7 Physical Exam General Appearance: WD/WN, no apparent distress, + thin Neck: supple, trachea midline Respiratory/Chest: chest non-tender, lungs clear, normal breath sounds, no respiratory distress, no accessory muscle use Cardiovascular: regular rate, rhythm, no edema, + tachycardia Abdomen: normal bowel sounds, non tender, soft Extremities: non-tender, no pedal edema Neurologic/Psychiatric: alert, normal mood/affect, oriented x 3 Skin: normal color, warm/dry, no rash Laboratory Results Results Past 24 Hours Test 10/17/16 20:04 10/17/16 20:05 10/17/16 21:02 10/17/16 22:00 Range/Units Bedside Glucose 272 272 239 70-90 mg/dl Venous Blood pH 7.26 7.36-7.41 Sodium Level 138 136-145 mmol/L Potassium Level 4.0 3.5-5.1 mmol/L Chloride Level 109 98-107 mmol/L Carbon Dioxide Level 14 21-32 mmol/L Anion Gap 15.0 3-11 mmol/L Blood Urea Nitrogen 11 7-18 mg/dl Creatinine 0.98 0.60-1.20 mg/dl Est Creatinine Clear Calc Drug Dose 65.7 ml/min Estimated GFR () 92.9 Estimated GFR (Non- 80.2 BUN/Creatinine Ratio 10.7 10-20 Random Glucose 291 70-99 mg/dl Calcium Level 7.8 8.5-10.1 mg/dl Phosphorus Level 1.1 2.5-4.9 mg/dl Magnesium Level 1.6 1.8-2.4 mg/dl Test 10/17/16 23:03 10/17/16 23:30 10/17/16 23:59 10/18/16 01:06 Range/Units Bedside Glucose 272 257 261 70-90 mg/dl Venous Blood pH 7.27 7.36-7.41 Sodium Level 141 136-145 mmol/L Potassium Level 4.1 3.5-5.1 mmol/L Chloride Level 112 98-107 mmol/L Carbon Dioxide Level 16 21-32 mmol/L Anion Gap 13.0 3-11 mmol/L Blood Urea Nitrogen 10 7-18 mg/dl Creatinine 0.90 0.60-1.20 mg/dl Est Creatinine Clear Calc Drug Dose 71.5 ml/min Estimated GFR () 103.0 Estimated GFR (Non- 88.9 BUN/Creatinine Ratio 11.5 10-20 Random Glucose 301 70-99 mg/dl Calcium Level 7.4 8.5-10.1 mg/dl Phosphorus Level 1.6 2.5-4.9 mg/dl Magnesium Level 2.3 1.8-2.4 mg/dl Beta-Hydroxybutyric Acid 34.21 0.2-2.81 mg/dL Test 10/18/16 01:59 10/18/16 03:00 10/18/16 03:50 10/18/16 04:45 Range/Units Bedside Glucose 243 219 219 70-90 mg/dl Venous Blood pH 7.30 7.36-7.41 Sodium Level 143 136-145 mmol/L Potassium Level 3.6 3.5-5.1 mmol/L Chloride Level 116 98-107 mmol/L Carbon Dioxide Level 16 21-32 mmol/L Anion Gap 11.0 3-11 mmol/L Blood Urea Nitrogen 9 7-18 mg/dl Creatinine 0.72 0.60-1.20 mg/dl Est Creatinine Clear Calc Drug Dose 89.4 ml/min Estimated GFR () 134.9 Estimated GFR (Non- 116.4 BUN/Creatinine Ratio 12.1 10-20 Random Glucose 242 70-99 mg/dl Calcium Level 7.6 8.5-10.1 mg/dl Phosphorus Level 1.3 2.5-4.9 mg/dl Magnesium Level 2.2 1.8-2.4 mg/dl Test 10/18/16 06:02 10/18/16 08:27 10/18/16 08:34 10/18/16 09:57 Range/Units Bedside Glucose 199 170 243 70-90 mg/dl Venous Blood pH 7.32 7.36-7.41 Sodium Level 143 136-145 mmol/L Potassium Level 3.6 3.5-5.1 mmol/L Chloride Level 116 98-107 mmol/L Carbon Dioxide Level 17 21-32 mmol/L Anion Gap 10.0 3-11 mmol/L Blood Urea Nitrogen 8 7-18 mg/dl Creatinine 0.60 0.60-1.20 mg/dl Est Creatinine Clear Calc Drug Dose 121.5 ml/min Estimated GFR () 146.8 Estimated GFR (Non- 126.7 BUN/Creatinine Ratio 12.5 10-20 Random Glucose 203 70-99 mg/dl Calcium Level 7.5 8.5-10.1 mg/dl Phosphorus Level 2.0 2.5-4.9 mg/dl Magnesium Level 1.8 1.8-2.4 mg/dl Test 10/18/16 11:06 10/18/16 12:03 10/18/16 12:15 10/18/16 13:10 Range/Units Bedside Glucose 278 220 198 70-90 mg/dl Venous Blood pH 7.37 7.36-7.41 Sodium Level 141 136-145 mmol/L Potassium Level 3.6 3.5-5.1 mmol/L Chloride Level 113 98-107 mmol/L Carbon Dioxide Level 19 21-32 mmol/L Anion Gap 9.0 3-11 mmol/L Blood Urea Nitrogen 6 7-18 mg/dl Creatinine 0.59 0.60-1.20 mg/dl Est Creatinine Clear Calc Drug Dose 123.6 ml/min Estimated GFR () 147.6 Estimated GFR (Non- 127.4 BUN/Creatinine Ratio 9.3 10-20 Random Glucose 246 70-99 mg/dl Calcium Level 7.8 8.5-10.1 mg/dl Phosphorus Level 1.2 2.5-4.9 mg/dl Magnesium Level 1.8 1.8-2.4 mg/dl Test 10/18/16 14:32 10/18/16 16:07 10/18/16 16:29 10/18/16 18:19 Range/Units Bedside Glucose 268 242 232 70-90 mg/dl Venous Blood pH 7.39 7.36-7.41 Sodium Level 142 136-145 mmol/L Potassium Level 3.7 3.5-5.1 mmol/L Chloride Level 113 98-107 mmol/L Carbon Dioxide Level 20 21-32 mmol/L Anion Gap 9.0 3-11 mmol/L Blood Urea Nitrogen 5 7-18 mg/dl Creatinine 0.64 0.60-1.20 mg/dl Est Creatinine Clear Calc Drug Dose 113.9 ml/min Estimated GFR () 143.7 Estimated GFR (Non- 124.0 BUN/Creatinine Ratio 7.5 10-20 Random Glucose 280 70-99 mg/dl Calcium Level 7.6 8.5-10.1 mg/dl Phosphorus Level 1.6 2.5-4.9 mg/dl Magnesium Level 1.7 1.8-2.4 mg/dl Assessment and Plan This is a 26 y/o female with hx DM type I admitted to hospital for DKA. Patient was complaining of flu like symptoms, which includes nausea, vomiting and decrease PO intake X4days. In ER her blood glucose was 300 with a pH of 7.18, bicarbonate of 8 and anion gap of 24. The urine was positive for 4+ ketones and serum beta hydroxybutyric acid was 88. Patient is currently in ICU. * DKA - Currently on DKA protocol - Pharmacy was consulted - Started on insulin drip and IVF D5W + KCL 40 meq @150mls/hr - BSG q1h - Hgb A1c 13.3 - Patient will need diabetics eduction prior discharge. Consulted diabetics educator - Continue to monitor in ICU * Electrolytes abnormalities - Low phosphorous: received 15mmol of potassium phos - Low Mg: Received 1g of Mg - Continue to monitor electrolytes * DVT prophylaxis - Lovenox * Code Status - Full code Resident Tracking Resident Involvement: Resident Care Provided Care Provided: Adult Hospital Medicine Reviewed: Pt Seen/Exam by Me Constitutional: denies: fever Respiratory: negative: short of breath Cardiovascular: denies chest pain Gastrointestinal/Abdominal: negative: abdominal pain General Appearance: no apparent distress Respiratory: lungs clear, no respiratory distress Cardiovascular: regular rate, rhythm Neurologic/Psychiatric: alert, oriented x 3 Skin Characteristics: warm/dry Assessment/Plan I have reviewed the medical record and performed a history and physical examination of this patient today. I have discussed the case with Dr. Maravilla. The above note reflects my findings, conclusions, and recommendations.
[2016-10-18] MEDS ORDERED: NURSING VERBAL MED ORDER ONE (20:30)
[2016-10-18] MEDS: ENOXAPARIN 40 MG/0.4 ML SYR SQ SCH (20:50)
[2016-10-18] MEDS ORDERED: MAGNESIUM SULFATE 1GM / D5W 1 GM in PREMIXED IN D5W 100 ML IV STA (23:54)
[2016-10-19] VITALS (11 sets, daily range): BP systolic 105–133; BP diastolic 64–88; PULSE 62–74; TEMP 36.5–36.6; O2SAT 94–99
[2016-10-19] MEDS ORDERED: NURSING VERBAL MED ORDER ONE
[2016-10-19] MEDS: INSULIN ASPART 100 UNITS/ML 3 ML PEN SC SCH ×2 (00:08→04:11)
[2016-10-19] MEDS: POTASSIUM CHLORIDE INJ 40 MEQ in D5W AND NSS 1,000 ML IV SCH (04:38)
[2016-10-19 06:11] LABS: BLOOD UREA NITROGEN 5 mg/dl (7-18); BUN/CREATININE RATIO 12.1 (10-20); CALCIUM 7.6 mg/dl (8.5-10.1); CARBON DIOXIDE 27 mmol/L (21-32); CHLORIDE 111 mmol/L (98-107); CREATININE 0.42 mg/dl (0.60-1.20); GLUCOSE 231 mg/dl (70-99); POTASSIUM 3.4 mmol/L (3.5-5.1); SODIUM 145 mmol/L (136-145)
[2016-10-19 06:12] LABS: PHOSPHORUS 1.7 mg/dl (2.5-4.9)
[2016-10-19] MEDS ORDERED: INSULIN GLARGINE SOLOSTAR 100 UNITS/ML 3 ML PEN SC SCH (09:00)
[2016-10-19 09:53] LABS: HEMATOCRIT 32.2 % (37-47); MEAN CELL VOLUME 91.2 fL (80-100); MEAN CORPUSCULAR HEMOGLOBIN 31.7 pg (25-34); MEAN CORPUSCULAR HGB CONC 34.8 g/dl (32-36); MEAN PLATELET VOLUME 10.2 fL (7.4-10.4); PLATELET COUNT 181 K/uL (130-400); RED BLOOD COUNT 3.53 M/uL (4.2-5.4); WHITE BLOOD COUNT 5.63 K/uL (4.8-10.8)
[2016-10-19] MEDS ORDERED: INSDGIPEN SC (10:18)
[2016-10-19] MEDS ORDERED: NVLGIPEN SC (10:18)
--- NOTE | 2016-10-19 10:21 | Discharge Instructions ---
Discharge Instructions Date of Service Oct 19, 2016. Admission Reason for Admission: DKA Discharge Discharge Diagnosis / Problem: Diabetic Ketoacidosis Discharge Goals Goal(s): Decrease discomfort, Increase independence, Diagnostic testing, Therapeutic intervention Activity Recommendations Activity Limitations: resume your previous activity . Instructions / Follow-Up Instructions / Follow-Up Please take the insulin (8unite with each meal) as instructed. Please your glucose regularly. Follow up with Dr. Hughes on Friday 11:30am. Current Hospital Diet Patient's current hospital diet: Diabetes Type 1 Diet Discharge Diet Recommended Diet: Diabetes Type 1 Diet Pending Studies Studies pending at discharge: no Laboratory Results Hemoglobin A1c Test 10/17/16 15:00 Range/Units Estimated Average Glucose 335 mg/dl Hemoglobin A1c 13.3 H 4.5-5.6 % Medical Emergencies . Who to Call and When: Medical Emergencies: If at any time you feel your situation is an emergency, please call 911 immediately. . Non-Emergent Contact Non-Emergency issues call your: Primary Care Provider . . "Provider Documentation" section prepared by Shanique Maravilla. VTE Core Measure Inpt VTE Proph given/why not?: Enoxaparin (Lovenox)SQ
[2016-10-19 10:47] LABS: BASO % 0.2 %; BASO ABS # 0.01 K/uL (0-0.2); COMPLETE YES; EOS % 2.7 %; IG% 0.4 %; LYMPH % 46.4 %; LYMPH ABS # 2.61 K/uL (1.2-3.4); MONO % 14.2 %; NEUT % 36.1 %
--- NOTE | 2016-10-19 16:13 | Discharge Summary ---
Discharge Summary Date of Service Oct 19, 2016. (Shanique Maravilla MD) Discharge Summary Admission Date: Oct 17, 2016 at 17:22 Discharge Date: Oct 19, 2016 Discharge Disposition: Home Principal Diagnosis: Diabetic Ketoacidosis (Shanique Maravilla MD) Medication Reconciliation New Medications: Insulin Glargine (Lantus Solostar) 100 Unit/Ml Inj 8 UNIT SC AMPM for 30 Days, #1 PEN Insulin Aspart (Novolog Flexpen) 100 Units/Ml Inj 8 UNITS SC ACHS for 30 Days, #1 PEN 1 Refill Continued Medications: [Norplant] () 1 DOSE INTRAD DIRECTED CONTROL INPLANT. Discontinued Medications: Insulin Human Regular (Novolin R) 100 Units/1 Ml Inj 5-10 UNITS SC TID Discharge Exam Patient was seen at the bedside. She was comfortably lying down on her bed. Her mom was at the bedside. She denied any complaints today. Tolerating PO intake well. Review of Systems: Constitutional: No chills, No fever, No weakness Respiratory: No cough, No shortness of breath Cardiovascular: No chest pain, No edema Abdomen: No diarrhea, No nausea, No pain, No vomiting Genitourinary - Female: No dysuria Neurologic: No weakness Integumentary: No rash Physical Exam: General Appearance: + thin Eyes: PERRL, EOMI Neck: supple, trachea midline Respiratory/Chest: chest non-tender, lungs clear, normal breath sounds, no respiratory distress, no accessory muscle use Cardiovascular: regular rate, rhythm, no edema Abdomen / GI: normal bowel sounds, non tender, soft Extremities: no calf tenderness, no pedal edema, non-tender Neurologic/Psychiatric: alert, normal mood/affect, oriented x 3 Skin: normal color, warm/dry, no rash (Shanique Maravilla MD) Review of Systems: Constitutional: No fever Respiratory: No shortness of breath Cardiovascular: No chest pain Abdomen: No pain Physical Exam: General Appearance: no apparent distress Respiratory/Chest: lungs clear, no respiratory distress Cardiovascular: regular rate, rhythm Abdomen / GI: normal bowel sounds, non tender, soft Neurologic/Psychiatric: alert, oriented x 3 (Rabia Hughes M.D.) Hospital Course This is a 26 y/o female with PMHx of DM type I (diagnosed about 2 yrs ago) presented to the hospital with nausea, vomiting and decrease PO intake X4days. In the ED she was found to be in DKA. Lab works showed pH of 7.18, serum bicarbonate of 8 and anion gap of 24 with a glucose of 300 and beta hydroxybutyric acid of 88. Per patient her last visit with the endocrinology was about 2 yrs ago. She didn't return to office because he didn' t like the doctor. She self managing her Diabetes at home. He buys her insulin over the counter and takes around 10units with 3 meals/day. She doesn't check her glucose unless she feels unwell. Her glucose usually 300-400. If it's below 200, she usually feels shaky. She doesn't take any insulin at bedtime given concern for hypoglycemia in the evening. * Diabetic Ketoacidosis - Patient was admitted to the ICU. Pharmacy was consulted. Insulin was started according to the diabetics protocol. Started her on IVF and insulin drip. Once her anion gap closed patient was started on diet and switched to SQ insulin. Electrolytes (phos and magnesium) were corrected with supplement. Patient was observed overnight after closing anion gap. No acute event happened. Diabetics educator was consulted. HgbA1c is 13.3 and TSH was normal. Patient was discharged home on basal insulin Lantus 8unit and bolus Novolog insulin 8unit. Patient will follow up with Dr. Hughes in the clinic on 10/21. Total Time Spent: Greater than 30 minutes This includes examination of the patient, discharge planning, medication reconciliation, and communication with other providers. (Shanique Maravilla MD) I have reviewed the medical record and performed a history and physical examination of this patient today. I have discussed the case with Dr. Maravilla. The above note reflects my findings, conclusions, and recommendations to follow up with me at office on friday and check bsg in the meantime and bring readings. Total Time Spent: Greater than 30 minutes (40 min) (Rabia Hughes M.D.) Discharge Instructions Please refer to the electronic Patient Visit Report (Discharge Instructions) for additional information. (Shanique Maravilla MD)
== END 2016-10-19 11:00 | disposition home or self-care (01) | DRG 639 ==
LOC: ENRESERVTM → ENRESERVDT → C.EDB 12:57 → C.MSICU 17:22
PROVIDERS: ADMIT Internal Medicine; ATTEND Family Medicine
DX: E10.10 Type 1 diabetes mellitus with ketoacidosis without coma (principal); E83.39 Other disorders of phosphorus metabolism; E83.42 Hypomagnesemia; Z91.14 Patient's other noncompliance with medication regimen; Z79.4 Long term (current) use of insulin; Z86.79 Personal history of other diseases of the circulatory system; Z79.3 Long term (current) use of hormonal contraceptives